=== PATIENT | female | born 1965 | race Hispanic/Latino ===

== ENCOUNTER 2016-05-31 10:47 | Day surgery (SDC) | payer OTHER ==
[~2016-05-31] VITALS: Ht 165.1 cm; Wt 74.4 kg
[~2016-05-31 10:47] MED LIST: INTEGRA PLUS PO; RANITIDINE300 MG PO; TRAZODONE100 MG PO
[2016-05-31 13:59] VITALS: BP 119/68
== END 2016-05-31 14:08 | disposition home or self-care (01) | DRG 812 ==
LOC: ENDO 10:47 → ORM 14:00 → ENDO 14:08 → ORM 14:30 → ENDO 14:40
PROVIDERS: ATTEND Internal Medicine Gastroenterology
PROC: 0DBE8ZX Excision of Large Intestine, Via Natural or Artificial Opening Endoscopic, Diagnostic (ICD-10-PCS; principal; 2016-05-31)
DX: D50.9 Iron deficiency anemia, unspecified (principal); K63.3 Ulcer of intestine; K21.9 Gastro-esophageal reflux disease without esophagitis; K64.4 Residual hemorrhoidal skin tags; K64.8 Other hemorrhoids; Z90.49 Acquired absence of other specified parts of digestive tract; Z85.038 Personal history of other malignant neoplasm of large intestine

== ENCOUNTER 2016-07-26 13:12 | Day surgery (SDC) | payer OTHER ==
[~2016-07-26] VITALS: Ht 165.1 cm; Wt 73.5 kg
[2016-07-26 16:09] VITALS: BP 128/65
== END 2016-07-26 16:20 | disposition home or self-care (01) | DRG 812 ==
LOC: ENDO 13:12
PROVIDERS: ATTEND Internal Medicine Gastroenterology
PROC: 0DB98ZX Excision of Duodenum, Via Natural or Artificial Opening Endoscopic, Diagnostic (ICD-10-PCS; principal; 2016-07-26)
PROC: 0DB68ZX Excision of Stomach, Via Natural or Artificial Opening Endoscopic, Diagnostic (ICD-10-PCS; 2016-07-26)
DX: D50.9 Iron deficiency anemia, unspecified (principal); K26.9 Duodenal ulcer, unspecified as acute or chronic, without hemorrhage or perforation; K21.9 Gastro-esophageal reflux disease without esophagitis; Q40.8 Other specified congenital malformations of upper alimentary tract; K44.9 Diaphragmatic hernia without obstruction or gangrene; K29.70 Gastritis, unspecified, without bleeding; K64.8 Other hemorrhoids; Z85.038 Personal history of other malignant neoplasm of large intestine; Z90.49 Acquired absence of other specified parts of digestive tract